=== PATIENT | male | born 1955 | race Caucasian/White ===

== ENCOUNTER 2018-06-25 19:07 | Emergency (ER) | payer MEDICAID ==
[~2018-06-25] VITALS: Ht 180.3 cm; Wt 96.8 kg
[2018-06-25 19:15] VITALS: BP 121/58; TEMP 98.3
[2018-06-25 20:13] VITALS: PULSE 99
== END 2018-06-25 20:15 | disposition home or self-care (01) ==
LOC: COL.ER 19:07
DX: G89.29 Other chronic pain (principal); M54.2 Cervicalgia
CPT/HCPCS: J1885; J2360; J3010

== ENCOUNTER 2018-08-15 22:11 | Emergency (ER) | payer MEDICAID ==
[~2018-08-15] VITALS: Ht 182.9 cm; Wt 92.7 kg
[2018-08-15 22:17] VITALS: TEMP 97.8
[2018-08-15 22:41] LABS: COLLECTION METHOD CLEAN CATCH
[2018-08-15 22:44] LABS: BASO # 0.1 (0.0-0.2); BASO % 0.6 % (0.0-2.0); EOS # 0.2 (0.0-0.7); EOS % 1.4 % (0-4.0); GRAN # 7.4 (1.4-6.5); GRAN % 58.8 % (42.2-75.2); HEMATOCRIT 42.8 % (42.0-52.0); HEMOGLOBIN 14.8 g/dl (13.5-18.0); LYMPH # 3.9 (1.2-3.4); LYMPH % 30.9 % (20.0-51.0); MEAN CELL VOLUME 91 fl (80.0-100.0); MEAN CORPUSCULAR HEMOGLOBIN 31 pg (27.0-31.0); MEAN CORPUSCULAR HGB CONC 35 g/dl (33.0-37.0); PLATELET COUNT 280 K/mm3 (130-400); RED BLOOD COUNT 4.73 M/mm3 (4.20-5.60); REDCELL DISTRIBUTION WIDTH-CV 12.8 % (11.5-14.5)
[2018-08-15 22:48] LABS: PH 6 (5-8); SQUAMOUS EPITHELIAL None Seen /hpf; URINE APPEARANCE Clear; URINE BACTERIA None Seen /hpf; URINE BILIRUBIN Negative (NEGATIVE); URINE BLOOD Negative (NEGATIVE); URINE COLOR Straw; URINE GLUCOSE 1+ (NEGATIVE); URINE KETONE Negative (NEGATIVE); URINE LEUKOCYTE ESTERASE Negative (NEGATIVE); URINE NITRATE Negative (NEGATIVE); URINE PROTEIN(semi-quant) Negative (NEGATIVE); URINE RBC None Seen /hpf; URINE UROBILINOGEN Negative (NEGATIVE)
[2018-08-15] MEDS ORDERED: CARDIZEM120 MG PO (22:54)
[2018-08-15 22:56] LABS: ALANINE AMINOTRANSFERASE 25 U/L (21-72); ALBUMIN 3.9 gm/dL (3.5-5.0); ALKALINE PHOSPHATASE 88 U/L (50-136); ANION GAP 9 mmol/L (7-16); AST,SGOT 18 U/L (15-37); BILIRUBIN,TOTAL 0.4 mg/dL (0.0-1.0); BLOOD UREA NITROGEN 18 mg/dL (9-20); CALCIUM 9.3 mg/dL (8.4-10.2); CARBON DIOXIDE 26 mmol/L (22-30); CHLORIDE 99 mmol/L (98-107); CREATININE, serum 1.06 mg/dL (0.66-1.25); GLUCOSE 128 mg/dL (74-106); POTASSIUM 3.7 mmol/L (3.4-5.0); SODIUM 134 mmol/L (137-145); TOTAL PROTEIN 6.8 gm/dL (6.4-8.2)
[2018-08-15] MEDS ORDERED: NOVOLOG 100U100 U/M1 SQ (22:56)
[2018-08-15] MEDS ORDERED: HUMIRA40 MG/0.8 SQ (22:56)
[2018-08-15] MEDS ORDERED: OZEMPIC0.25 MG/0. SQ (22:57)
[2018-08-15] MEDS ORDERED: LANTUS SOLOS100 U/ML SQ (22:57)
[2018-08-15] MEDS ORDERED: REPATHA PU420 MG/3.5 SQ (22:58)
[2018-08-15] MEDS ORDERED: PRIL40 PO (22:58)
[2018-08-15 23:01] LABS: C-REACTIVE PROTEIN < 0.5 mg/dL (0.0-0.9)
[2018-08-15 23:09] LABS: TROPONIN-I < 0.012 ng/mL (0.000-0.035)
[2018-08-15] MEDS ORDERED: LEVAQUIN 5500 MG/TA1 PO (23:27)
[2018-08-15 23:54] VITALS: BP 125/84; PULSE 84
== END 2018-08-15 23:55 | disposition home or self-care (01) ==
LOC: COL.ER 22:11
PROVIDERS: Emergency Medicine
DX: G89.29 Other chronic pain (principal); M54.2 Cervicalgia; F17.210 Nicotine dependence, cigarettes, uncomplicated; E11.9 Type 2 diabetes mellitus without complications; K21.9 Gastro-esophageal reflux disease without esophagitis; I10 Essential (primary) hypertension; Z79.4 Long term (current) use of insulin
CPT/HCPCS: J3010; J7030

== ENCOUNTER 2018-09-30 20:03 | Emergency (ER) | payer MEDICAID ==
[~2018-09-30] VITALS: Ht 182.9 cm; Wt 93.2 kg
[~2018-09-30 20:03] MED LIST: CARDIZEM120 MG PO; HUMIRA40 MG/0.8 SQ; LANTUS SOLOS100 U/ML SQ; LEVAQUIN 5500 MG/TA1 PO; NOVOLOG 100U100 U/M1 SQ; OZEMPIC0.25 MG/0. SQ; PRIL40 PO; REPATHA PU420 MG/3.5 SQ
[2018-09-30 20:13] VITALS: BP 138/76; TEMP 98.9
[2018-09-30 22:07] VITALS: PULSE 97
== END 2018-09-30 23:54 | disposition home or self-care (01) ==
LOC: COL.ER 20:03
DX: G89.29 Other chronic pain (principal); M54.2 Cervicalgia; M25.559 Pain in unspecified hip; J44.9 Chronic obstructive pulmonary disease, unspecified; I10 Essential (primary) hypertension; E11.9 Type 2 diabetes mellitus without complications; Z79.4 Long term (current) use of insulin; Z87.891 Personal history of nicotine dependence
CPT/HCPCS: J1885; J3010

== ENCOUNTER → 2018-10-03 | Outpatient (CLI) | payer MEDICAID | LOC: MHCPAIN 14:53 | DX: G89.29 Other chronic pain (principal); M54.12 Radiculopathy, cervical region; M47.812 Spondylosis without myelopathy or radiculopathy, cervical region | CPT/HCPCS: G0463 ==

== ENCOUNTER 2018-10-16 12:54 | Outpatient (RCR) | payer MEDICAID | END 2018-12-06 10:21 | disposition home or self-care (01) | LOC: WSPT 12:54 | DX: J45.909 Unspecified asthma, uncomplicated (principal); M47.812 Spondylosis without myelopathy or radiculopathy, cervical region ==

== ENCOUNTER → 2018-10-23 | Outpatient (CLI) | payer MEDICAID | LOC: MHCPAIN 10:33 | DX: M54.12 Radiculopathy, cervical region (principal); M47.812 Spondylosis without myelopathy or radiculopathy, cervical region; M50.90 Cervical disc disorder, unspecified, unspecified cervical region | CPT/HCPCS: J1100; Q9967 ==

== ENCOUNTER 2018-12-02 21:17 | Emergency (ER) | payer MEDICAID ==
[~2018-12-02] VITALS: Ht 182.9 cm; Wt 93.2 kg
[2018-12-02 21:30] VITALS: TEMP 97.2
[2018-12-02 22:50] VITALS: BP 135/88; PULSE 82
== END 2018-12-02 22:50 | disposition home or self-care (01) ==
LOC: COL.ER 21:17
DX: S93.401A Sprain of unspecified ligament of right ankle, initial encounter (principal); Z79.4 Long term (current) use of insulin; W18.42XA Slipping, tripping and stumbling without falling due to stepping into hole or opening, initial encounter

== ENCOUNTER 2019-01-10 17:27 | Emergency (ER) | payer MEDICAID ==
[~2019-01-10] VITALS: Ht 182.9 cm; Wt 93.2 kg
[2019-01-10 17:29] VITALS: BP 132/69; TEMP 98.6
[2019-01-10] MEDS ORDERED: NEXIUM 40MG40 MG PO (17:50)
[2019-01-10 18:06] LABS: BASO # 0.1 (0.0-0.2); BASO % 0.6 % (0.0-2.0); EOS # 0.1 (0.0-0.7); EOS % 0.7 % (0-4.0); GRAN # 7.2 (1.4-6.5); GRAN % 60.1 % (42.2-75.2); HEMATOCRIT 42.9 % (42.0-52.0); HEMOGLOBIN 14.7 g/dl (13.5-18.0); LYMPH # 3.8 (1.2-3.4); LYMPH % 31.6 % (20.0-51.0); MEAN CELL VOLUME 92 fl (80.0-100.0); MEAN CORPUSCULAR HEMOGLOBIN 31 pg (27.0-31.0); MEAN CORPUSCULAR HGB CONC 34 g/dl (33.0-37.0); MONO # 0.8 (0.1-0.6); MONO % 6.7 % (1.7-9.3); PLATELET COUNT 282 K/mm3 (130-400); RED BLOOD COUNT 4.68 M/mm3 (4.20-5.60); REDCELL DISTRIBUTION WIDTH-CV 12.7 % (11.5-14.5)
[2019-01-10 18:17] LABS: ALBUMIN 4.3 gm/dL (3.5-5.0); BILIRUBIN,TOTAL 0.7 mg/dL (0.0-1.0); CREATININE, serum 0.96 (0.66-1.25); POTASSIUM 3.4 mmol/L (3.4-5.0); TOTAL PROTEIN 7.7 gm/dL (6.4-8.2)
[2019-01-10 20:30] VITALS: PULSE 77
== END 2019-01-10 20:30 | disposition home or self-care (01) ==
LOC: COL.ER 17:27
PROVIDERS: Nurse Practitioner
DX: T63.441A Toxic effect of venom of bees, accidental (unintentional), initial encounter (principal); M54.2 Cervicalgia; G89.29 Other chronic pain; I10 Essential (primary) hypertension; E11.9 Type 2 diabetes mellitus without complications; Z79.4 Long term (current) use of insulin; J44.9 Chronic obstructive pulmonary disease, unspecified; F17.290 Nicotine dependence, other tobacco product, uncomplicated
CPT/HCPCS: J1200; J1885; J2920

== ENCOUNTER 2019-03-09 10:40 | Day surgery (SDC) | payer MEDICAID ==
[~2019-03-09] VITALS: Ht 182.9 cm; Wt 89.0 kg
[~2019-03-09 10:40] MED LIST changes: +CARDIZEM CD 12120 MG PO; -CARDIZEM120 MG PO; +HUMIRA40 MG/0.4 SQ; -HUMIRA40 MG/0.8 SQ; +NEXIUM 40MG40 MG PO; -REPATHA PU420 MG/3.5 SQ; +REPATHA SU140 MG/1 M SQ
[2019-03-09] MEDS ORDERED: LIDOCAINE HC20 MG/M2 PO (11:41)
[2019-03-09] MEDS ORDERED: ZOFRAN ODT4 MG PO (11:42)
[2019-03-09] MEDS ORDERED: LAMISIL250 M1 PO (11:42)
[2019-03-09] MEDS ORDERED: FOLIC ACID 11 MG/TA1 PO (11:43)
[2019-03-09] MEDS ORDERED: LYRICA 150MG C150 MG PO (11:43)
[2019-03-09] MEDS ORDERED: RELAFEN750 MG PO (11:44)
[2019-03-09] MEDS ORDERED: TRENTAL 400MG400 MG PO (11:44)
[2019-03-09] MEDS ORDERED: DULCOLAX STOOL100 MG PO (11:44)
[2019-03-09] MEDS ORDERED: PREDNISONE 5MG5 MG PO (11:44)
[2019-03-09] MEDS ORDERED: FLOMAX 0.40.4 MG/CAP PO (11:45)
[2019-03-09] MEDS ORDERED: VALTREX1 GM PO (11:45)
[2019-03-09] MEDS ORDERED: ASPIRIN E.C. 8181 MG PO (11:45)
[2019-03-09] MEDS ORDERED: ZYRTEC 10MG10 MG PO (11:45)
[2019-03-09] MEDS ORDERED: METHOTREXA2.5 MG/TAB PO (11:46)
[2019-03-09] MEDS ORDERED: PROSCAR 5MG5 MG PO (11:46)
[2019-03-09] MEDS ORDERED: REQUIP 0.5MG0.5 MG PO (11:46)
[2019-03-09] MEDS ORDERED: AMBIEN 10MG10 MG PO (11:47)
[2019-03-09] MEDS ORDERED: ZOLOFT 100MG100 MG PO (11:47)
[2019-03-09] MEDS ORDERED: TOVIAZ4 MG PO (11:47)
[2019-03-09] MEDS ORDERED: SYMJEPI0.3 MG/0.3 IJ (11:48)
[2019-03-09] MEDS ORDERED: SSD25 GM TP (11:49)
[2019-03-09] MEDS ORDERED: PRINIVIL10 MG PO (11:50)
[2019-03-09] MEDS ORDERED: TEMOVATE0.05% TP (11:50)
[2019-03-09] MEDS ORDERED: BACTROBAN22 TOP (11:50)
[2019-03-09] MEDS ORDERED: FIORICET 325 MG1 TA1 PO (11:51)
[2019-03-09] MEDS ORDERED: PROCTOCREAM-HC2.5% RC (11:51)
[2019-03-09 12:39] VITALS: BP 114/75; PULSE 78; TEMP 97.3
[2019-03-09 13:00] VITALS: BP 105/76; PULSE 83
--- NOTE | 2019-03-09 13:00 | NUR ---
Pt to [facility] via cart. Pt awake and alert. Denies pain or nausea. Pt makes crude jokes and sexual innuendos at nursing staff and laughs at him self. Pt ambulates to recliner with stand by assistance. Warm blanket provided. Ex- brought to room. Coffee and muffin provided. Call light within reach.
[2019-03-09 13:15] VITALS: BP 110/89; PULSE 78
--- NOTE | 2019-03-09 13:15 | NUR ---
Pt tolerating food and fluids without difficulties. Call light within reach.
[2019-03-09 13:30] VITALS: BP 103/78; PULSE 82
--- NOTE | 2019-03-09 13:30 | NUR ---
Second muffin and coffee given per request. Call light within reach.
--- NOTE | 2019-03-09 13:45 | NUR ---
IV site discontinued with all parts intact by Dinh GALLOWAY. Pt up to restroom with assistance from .
--- NOTE | 2019-03-09 14:00 | NUR ---
Discharge instructions reviewed. Pt voices understanding. Pt escorted to private car by Dinh GALLOWAY.
== END 2019-03-09 14:00 | disposition home or self-care (01) ==
LOC: SDCO 10:40
DX: R19.7 Diarrhea, unspecified (principal); K57.30 Diverticulosis of large intestine without perforation or abscess without bleeding; K22.70 Barrett's esophagus without dysplasia; Z79.899 Other long term (current) drug therapy; I10 Essential (primary) hypertension; G47.33 Obstructive sleep apnea (adult) (pediatric); G89.29 Other chronic pain; M54.2 Cervicalgia; M87.88 Other osteonecrosis, other site; E11.9 Type 2 diabetes mellitus without complications; Z79.4 Long term (current) use of insulin
CPT/HCPCS: J2704

== ENCOUNTER 2019-03-24 22:01 | Emergency (ER) | payer MEDICAID ==
[~2019-03-24] VITALS: Ht 180.3 cm; Wt 89.5 kg
[~2019-03-24 22:01] MED LIST changes: +AMBIEN 10MG10 MG PO; +ASPIRIN E.C. 8181 MG PO; +BACTROBAN22 TOP; +DULCOLAX STOOL100 MG PO; +FIORICET 325 MG1 TA1 PO; +FLOMAX 0.40.4 MG/CAP PO; +FOLIC ACID 11 MG/TA1 PO; +LAMISIL250 M1 PO; +LIDOCAINE HC20 MG/M2 PO; +LYRICA 150MG C150 MG PO; +METHOTREXA2.5 MG/TAB PO; +PREDNISONE 5MG5 MG PO; +PRINIVIL10 MG PO; +PROCTOCREAM-HC2.5% RC; +PROSCAR 5MG5 MG PO; +RELAFEN750 MG PO; +REQUIP 0.5MG0.5 MG PO; +SSD25 GM TP; +SYMJEPI0.3 MG/0.3 IJ; +TEMOVATE0.05% TP; +TOVIAZ4 MG PO; +TRENTAL 400MG400 MG PO; +VALTREX1 GM PO; +ZOFRAN ODT4 MG PO; +ZOLOFT 100MG100 MG PO; +ZYRTEC 10MG10 MG PO
[2019-03-24 22:35] VITALS: TEMP 98.7
[2019-03-25] MEDS ORDERED: NORCO 325 MG-51 TAB PO (01:49)
[2019-03-25 02:29] VITALS: BP 119/77; PULSE 84
== END 2019-03-25 02:29 | disposition home or self-care (01) ==
LOC: COL.ER 22:01
DX: S40.011A Contusion of right shoulder, initial encounter (principal); M79.7 Fibromyalgia; F17.210 Nicotine dependence, cigarettes, uncomplicated; Z79.4 Long term (current) use of insulin; S50.01XA Contusion of right elbow, initial encounter; S60.211A Contusion of right wrist, initial encounter; W18.39XA Other fall on same level, initial encounter; Y92.009 Unspecified place in unspecified non-institutional (private) residence as the place of occurrence of the external cause
CPT/HCPCS: J3010

== ENCOUNTER 2019-05-01 15:27 | Emergency (ER) | payer MEDICAID ==
[~2019-05-01] VITALS: Ht 182.9 cm; Wt 92.3 kg
[~2019-05-01 15:27] MED LIST changes: +NORCO 325 MG-51 TAB PO
[2019-05-01 15:32] VITALS: TEMP 97.7
[2019-05-01 16:07] LABS: BASO # 0.1 (0.0-0.2); BASO % 0.9 % (0.0-2.0); EOS # 0.2 (0.0-0.7); EOS % 1.9 % (0-4.0); GRAN # 6.4 (1.4-6.5); GRAN % 61.6 % (42.2-75.2); HEMATOCRIT 49.9 % (42.0-52.0); HEMOGLOBIN 16.4 g/dl (13.5-18.0); LYMPH % 29.2 % (20.0-51.0); MEAN CELL VOLUME 96 fl (80.0-100.0); MEAN CORPUSCULAR HEMOGLOBIN 32 pg (27.0-31.0); MEAN CORPUSCULAR HGB CONC 33 g/dl (33.0-37.0); MEAN PLATELET VOLUME 8.9 fl (7.4-10.4); MONO # 0.6 (0.1-0.6); MONO % 6.1 % (1.7-9.3); PLATELET COUNT 291 K/mm3 (130-400); RED BLOOD COUNT 5.18 M/mm3 (4.20-5.60); REDCELL DISTRIBUTION WIDTH-CV 13.2 % (11.5-14.5)
[2019-05-01 16:11] LABS: ALANINE AMINOTRANSFERASE 22 U/L (21-72); ALBUMIN 4.3 gm/dL (3.5-5.0); ALKALINE PHOSPHATASE 98 U/L (50-136); ANION GAP 8 mmol/L (7-16); AST,SGOT 27 U/L (15-37); BILIRUBIN,TOTAL 0.4 mg/dL (0.0-1.0); BLOOD UREA NITROGEN 11 mg/dL (9-20); CALCIUM 9.8 mg/dL (8.4-10.2); CARBON DIOXIDE 31 mmol/L (22-30); CHLORIDE 100 mmol/L (98-107); CREATININE, serum 0.83 (0.66-1.25); GLUCOSE 118 mg/dL (74-106); POTASSIUM 4.2 mmol/L (3.4-5.0); PROTHROMBIN TIME 11.2 SECONDS (9.7-12.8); SODIUM 138 mmol/L (137-145); TOTAL PROTEIN 7.5 gm/dL (6.4-8.2)
[2019-05-01 16:25] LABS: C-REACTIVE PROTEIN < 0.5 mg/dL (0.0-0.9); TROPONIN-I < 0.012 ng/mL (0.000-0.035)
[2019-05-01 17:34] VITALS: BP 123/83; PULSE 80
== END 2019-05-01 17:34 | disposition home or self-care (01) ==
LOC: COL.ER 15:27
PROVIDERS: Emergency Medicine
DX: R20.0 Anesthesia of skin (principal); R53.1 Weakness; E11.9 Type 2 diabetes mellitus without complications; I10 Essential (primary) hypertension; E78.5 Hyperlipidemia, unspecified; J44.9 Chronic obstructive pulmonary disease, unspecified; F17.210 Nicotine dependence, cigarettes, uncomplicated; Z90.89 Acquired absence of other organs; Z79.4 Long term (current) use of insulin; Z98.890 Other specified postprocedural states
CPT/HCPCS: J7030

== ENCOUNTER → 2019-05-04 | Outpatient (CLI) | payer MEDICAID | LOC: ZCOL.LAB 16:56 | DX: Z77.010 Contact with and (suspected) exposure to arsenic (principal) ==

== ENCOUNTER 2019-05-09 18:34 | Emergency (ER) | payer MEDICAID ==
[~2019-05-09] VITALS: Ht 182.9 cm; Wt 92.3 kg
[2019-05-09 18:43] VITALS: BP 134/82
[2019-05-09 19:35] VITALS: PULSE 92; TEMP 98.2
== END 2019-05-09 19:35 | disposition home or self-care (01) ==
LOC: COL.ER 18:34
DX: M54.5 Low back pain (principal); M54.2 Cervicalgia; G89.29 Other chronic pain; F17.210 Nicotine dependence, cigarettes, uncomplicated; J44.9 Chronic obstructive pulmonary disease, unspecified; E78.5 Hyperlipidemia, unspecified; I10 Essential (primary) hypertension; E11.9 Type 2 diabetes mellitus without complications; Z79.4 Long term (current) use of insulin; Z79.82 Long term (current) use of aspirin
CPT/HCPCS: J1885; J2360

== ENCOUNTER → 2019-05-10 | Outpatient (CLI) | payer MEDICAID | LOC: COL.RAD 13:38 | DX: Z01.812 Encounter for preprocedural laboratory examination (principal); R20.0 Anesthesia of skin; R29.810 Facial weakness; R42 Dizziness and giddiness; R51 Headache | CPT/HCPCS: A9585 ==

== ENCOUNTER → 2019-05-16 | Outpatient (CLI) | payer MEDICAID | LOC: COL.RAD 08:55 | DX: J98.4 Other disorders of lung (principal); R06.00 Dyspnea, unspecified; F17.200 Nicotine dependence, unspecified, uncomplicated ==

== ENCOUNTER → 2019-05-29 | Outpatient (CLI) | payer MEDICAID ==
[~2019-05-29] MED LIST changes: +LEVAQUIN 750MG750 M1 PO; +OXYCODONE H5 MG/5 ML PO; +PHENERGAN 25 TA25 MG PO
== END ==
LOC: MHCPAIN
DX: G89.29 Other chronic pain (principal); M54.12 Radiculopathy, cervical region; M54.81 Occipital neuralgia; R51 Headache; M47.812 Spondylosis without myelopathy or radiculopathy, cervical region
CPT/HCPCS: G0463

== ENCOUNTER 2019-06-01 14:16 | Emergency (ER) | payer MEDICAID ==
[~2019-06-01] VITALS: Ht 182.9 cm; Wt 93.2 kg
[~2019-06-01 14:16] MED LIST changes: -LEVAQUIN 750MG750 M1 PO; -OXYCODONE H5 MG/5 ML PO; -PHENERGAN 25 TA25 MG PO
[2019-06-01 14:34] VITALS: TEMP 97.8
[2019-06-01 15:24] LABS: BASO # 0.1 (0.0-0.2); BASO % 0.7 % (0.0-2.0); EOS # 0.2 (0.0-0.7); EOS % 1.3 % (0-4.0); GRAN % 66.5 % (42.2-75.2); HEMATOCRIT 47.8 % (42.0-52.0); HEMOGLOBIN 16.5 g/dl (13.5-18.0); LYMPH # 2.8 (1.2-3.4); LYMPH % 23.4 % (20.0-51.0); MEAN CELL VOLUME 90 fl (80.0-100.0); MEAN CORPUSCULAR HEMOGLOBIN 31 pg (27.0-31.0); MEAN CORPUSCULAR HGB CONC 35 g/dl (33.0-37.0); MEAN PLATELET VOLUME 8.9 fl (7.4-10.4); MONO # 0.9 (0.1-0.6); MONO % 7.8 % (1.7-9.3); PLATELET COUNT 274 K/mm3 (130-400); RED BLOOD COUNT 5.29 M/mm3 (4.20-5.60); REDCELL DISTRIBUTION WIDTH-CV 12.8 % (11.5-14.5)
[2019-06-01 15:38] LABS: ALBUMIN 4.3 gm/dL (3.5-5.0); BILIRUBIN,TOTAL 0.7 mg/dL (0.0-1.0); CALCIUM 9.9 mg/dL (8.4-10.2); CREATININE, serum 0.93 (0.66-1.25); POTASSIUM 4.6 mmol/L (3.4-5.0); TOTAL PROTEIN 7.8 gm/dL (6.4-8.2)
[2019-06-01] MEDS ORDERED: PHENERGAN 25 TA25 MG PO (16:10)
[2019-06-01] MEDS ORDERED: NORCO 325 MG-51 TAB PO (16:10)
[2019-06-01] MEDS ORDERED: LEVAQUIN 750MG750 M1 PO (16:10)
[2019-06-01 17:11] VITALS: BP 118/79; PULSE 85
[2019-06-02] MEDS ORDERED: OXYCODONE H5 MG/5 ML PO (17:54)
== END 2019-06-01 17:10 | disposition home or self-care (01) ==
LOC: COL.ER 14:16
PROVIDERS: Emergency Medicine
DX: G89.18 Other acute postprocedural pain (principal); E86.0 Dehydration; Z79.82 Long term (current) use of aspirin; Z79.4 Long term (current) use of insulin
CPT/HCPCS: J1885; J2550; J3010; J7030

== ENCOUNTER 2019-06-02 15:52 | Emergency (ER) | payer MEDICAID ==
[~2019-06-02] VITALS: Ht 182.9 cm; Wt 93.2 kg
[~2019-06-02 15:52] MED LIST changes: +LEVAQUIN 750MG750 M1 PO; +PHENERGAN 25 TA25 MG PO
[2019-06-02 15:55] VITALS: TEMP 97.2
[2019-06-02 16:47] LABS: BASO # 0.1 (0.0-0.2); BASO % 0.7 % (0.0-2.0); EOS # 0.2 (0.0-0.7); GRAN # 6.2 (1.4-6.5); HEMATOCRIT 47.7 % (42.0-52.0); HEMOGLOBIN 16.4 g/dl (13.5-18.0); LYMPH # 2.5 (1.2-3.4); LYMPH % 25.3 % (20.0-51.0); MEAN CELL VOLUME 91 fl (80.0-100.0); MEAN CORPUSCULAR HEMOGLOBIN 31 pg (27.0-31.0); MEAN CORPUSCULAR HGB CONC 34 g/dl (33.0-37.0); MEAN PLATELET VOLUME 8.9 fl (7.4-10.4); MONO # 0.7 (0.1-0.6); MONO % 7.5 % (1.7-9.3); PLATELET COUNT 297 K/mm3 (130-400); RED BLOOD COUNT 5.27 M/mm3 (4.20-5.60); REDCELL DISTRIBUTION WIDTH-CV 12.8 % (11.5-14.5)
[2019-06-02 17:02] LABS: ALBUMIN 4.2 gm/dL (3.5-5.0); BILIRUBIN,TOTAL 0.4 mg/dL (0.0-1.0); CALCIUM 9.7 mg/dL (8.4-10.2); CREATININE, serum 0.88 (0.66-1.25); POTASSIUM 4.4 mmol/L (3.4-5.0); TOTAL PROTEIN 7.6 gm/dL (6.4-8.2)
[2019-06-02 17:33] LABS: COLLECTION METHOD CLEAN CATCH
[2019-06-02 17:40] LABS: PH 5 (5-8); SQUAMOUS EPITHELIAL None Seen /hpf; URINE APPEARANCE Clear; URINE BACTERIA None Seen /hpf; URINE BILIRUBIN Negative (NEGATIVE); URINE BLOOD 2+ (NEGATIVE); URINE COLOR Yellow; URINE GLUCOSE Negative (NEGATIVE); URINE KETONE Negative (NEGATIVE); URINE LEUKOCYTE ESTERASE Negative (NEGATIVE); URINE NITRATE Negative (NEGATIVE); URINE PROTEIN(semi-quant) Negative (NEGATIVE); URINE UROBILINOGEN Negative (NEGATIVE)
[2019-06-02] MEDS ORDERED: OXYCODONE H5 MG/5 ML PO (17:54)
[2019-06-02 18:04] VITALS: BP 129/78; PULSE 83
== END 2019-06-02 18:05 | disposition home or self-care (01) ==
LOC: COL.ER 15:52
PROVIDERS: Family Medicine
DX: K13.79 Other lesions of oral mucosa (principal); G89.18 Other acute postprocedural pain; Z79.82 Long term (current) use of aspirin
CPT/HCPCS: J1170; J7030

== ENCOUNTER 2019-06-20 21:28 | Emergency (ER) | payer MEDICAID ==
[~2019-06-20] VITALS: Ht 182.9 cm; Wt 87.7 kg
[~2019-06-20 21:28] MED LIST changes: +OXYCODONE H5 MG/5 ML PO
[2019-06-20 21:35] VITALS: BP 134/96; TEMP 97.7
[2019-06-20 22:49] LABS: BASO # 0.1 (0.0-0.2); BASO % 0.6 % (0.0-2.0); EOS # 0.2 (0.0-0.7); EOS % 1.9 % (0-4.0); GRAN # 5.4 (1.4-6.5); GRAN % 58.1 % (42.2-75.2); HEMATOCRIT 42.8 % (42.0-52.0); HEMOGLOBIN 14.8 g/dl (13.5-18.0); LYMPH # 2.7 (1.2-3.4); LYMPH % 28.9 % (20.0-51.0); MEAN CELL VOLUME 91 fl (80.0-100.0); MEAN CORPUSCULAR HEMOGLOBIN 31 pg (27.0-31.0); MEAN CORPUSCULAR HGB CONC 35 g/dl (33.0-37.0); MEAN PLATELET VOLUME 8.8 fl (7.4-10.4); MONO # 0.9 (0.1-0.6); MONO % 10.1 % (1.7-9.3); PLATELET COUNT 270 K/mm3 (130-400); RED BLOOD COUNT 4.73 M/mm3 (4.20-5.60); REDCELL DISTRIBUTION WIDTH-CV 12.9 % (11.5-14.5)
[2019-06-20 23:07] LABS: BILIRUBIN,TOTAL 0.3 mg/dL (0.0-1.0); C-REACTIVE PROTEIN 6.4 mg/dL (0.0-0.9); CALCIUM 9.3 mg/dL (8.4-10.2); CREATININE, serum 0.73 (0.66-1.25); POTASSIUM 4.1 mmol/L (3.4-5.0); TOTAL PROTEIN 7.2 gm/dL (6.4-8.2)
[2019-06-20 23:14] LABS: ERYTHROCYTE SEDIMENTATION RATE 27 mm/hr (0-30)
[2019-06-21 01:50] VITALS: PULSE 82
[2019-06-21] MEDS ORDERED: FLAGYL 500500 MG/100 IV (10:36)
[2019-06-21] MEDS ORDERED: VIBRAMYCININJ IV (10:36)
[2019-06-21] MEDS ORDERED: PROAIR HFA0.09 MG/AC IH (10:37)
[2019-06-21] MEDS ORDERED: TRELEGY ELLIPT1 EACH IH (10:37)
== END 2019-06-21 01:50 | disposition home or self-care (01) ==
LOC: COL.ER 21:28
PROVIDERS: Emergency Medicine
DX: S61.452A Open bite of left hand, initial encounter (principal); S61.451A Open bite of right hand, initial encounter; I10 Essential (primary) hypertension; E11.40 Type 2 diabetes mellitus with diabetic neuropathy, unspecified; J44.9 Chronic obstructive pulmonary disease, unspecified; E78.5 Hyperlipidemia, unspecified; F17.210 Nicotine dependence, cigarettes, uncomplicated; Z79.84 Long term (current) use of oral hypoglycemic drugs; Z79.52 Long term (current) use of systemic steroids; W54.0XXA Bitten by dog, initial encounter

== ENCOUNTER 2019-06-30 19:36 | Outpatient (RCR) | payer MEDICAID ==
[2019-06-21 10:10] VITALS: BP 127/80; PULSE 86; TEMP 98.6
[2019-06-21 18:02] VITALS: BP 121/92; PULSE 89; TEMP 98.1
[2019-06-21 20:00] VITALS: BP 114/77; PULSE 81
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
--- NOTE | 2019-06-22 12:44 | NUR ---
Message left for pt and pt .pt did not show for am appt.
[2019-06-22 15:34] VITALS: BP 111/82; PULSE 92; TEMP 97.7
[2019-06-23 07:30] VITALS: BP 120/82; PULSE 81; TEMP 97.9
--- NOTE | 2019-06-23 08:00 | NUR ---
Pt stated he was experiencing pain in Left Hand IV site. No infiltration or leaking. Applied warm moist compress. Pt expressed relief for 15 minutes. This RN and pt decided to try a new site. Pt agreed.
[2019-06-24 08:00] VITALS: BP 118/78; PULSE 82; TEMP 97.8
--- NOTE | 2019-06-24 10:04 | NUR ---
Pt/SO made aware this morning to arrive at 0700 tomorrow morning. Pt/SO aware.
[2019-06-25 07:28] VITALS: BP 133/71; PULSE 85; TEMP 98
--- NOTE | 2019-06-25 10:10 | NUR ---
Pt amb to exit at this time. PICC line was inserted by Meghna GALLOWAY, pt received verbal and written instructions regarding PICC care. labs were drawn prior to his departure per orders. Pt will be back this pm for IV abx.
[2019-06-25 10:17] LABS: BASO # 0.1 (0.0-0.2); BASO % 1.1 % (0.0-2.0); EOS # 0.3 (0.0-0.7); EOS % 2.9 % (0-4.0); GRAN # 4.5 (1.4-6.5); GRAN % 46.6 % (42.2-75.2); HEMATOCRIT 41.9 % (42.0-52.0); HEMOGLOBIN 14.4 g/dl (13.5-18.0); LYMPH % 40.7 % (20.0-51.0); MEAN CELL VOLUME 90 fl (80.0-100.0); MEAN CORPUSCULAR HEMOGLOBIN 31 pg (27.0-31.0); MEAN CORPUSCULAR HGB CONC 34 g/dl (33.0-37.0); MEAN PLATELET VOLUME 8.8 fl (7.4-10.4); MONO # 0.8 (0.1-0.6); MONO % 8.3 % (1.7-9.3); PLATELET COUNT 295 K/mm3 (130-400); RED BLOOD COUNT 4.64 M/mm3 (4.20-5.60); REDCELL DISTRIBUTION WIDTH-CV 12.6 % (11.5-14.5)
[2019-06-25 10:36] LABS: ALBUMIN 3.9 gm/dL (3.5-5.0); BILIRUBIN,TOTAL 0.2 mg/dL (0.0-1.0); CALCIUM 9.1 mg/dL (8.4-10.2); CREATININE, serum 0.65 (0.66-1.25); POTASSIUM 3.8 mmol/L (3.4-5.0); TOTAL PROTEIN 6.9 gm/dL (6.4-8.2)
[2019-06-25 18:14] VITALS: BP 112/76; PULSE 92; TEMP 97.6
[2019-06-26 07:16] VITALS: BP 115/77; PULSE 94; TEMP 98.1
[2019-06-26 18:46] VITALS: BP 102/82; PULSE 90; TEMP 97.9
[2019-06-27 08:00] VITALS: BP 114/84; PULSE 93; TEMP 98.3
[2019-06-27 18:32] VITALS: BP 120/84; PULSE 87; TEMP 97.8
[2019-06-28 08:00] VITALS: BP 135/85; TEMP 98.2
[2019-06-28 18:17] VITALS: BP 114/79; PULSE 100; TEMP 98
[2019-06-29 07:48] VITALS: BP 133/79; PULSE 94; TEMP 98.2
[2019-06-29 17:53] VITALS: BP 145/69; PULSE 97; TEMP 97.9
[~2019-06-30] VITALS: Ht 182.9 cm; Wt 93.0 kg
[2019-06-30 07:57] VITALS: BP 141/86; PULSE 94; TEMP 97.8
[~2019-06-30 19:36] MED LIST changes: +FLAGYL 500500 MG/100 IV; +PROAIR HFA0.09 MG/AC IH; +TRELEGY ELLIPT1 EACH IH; +VIBRAMYCININJ IV
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
[2019-07-02 16:12] VITALS: BP 123/74; TEMP 98.3
[2019-07-03 07:53] VITALS: BP 133/83; PULSE 95; TEMP 97.9
[2019-07-03 18:13] VITALS: BP 128/79; PULSE 95; TEMP 98
[2019-07-04 07:42] VITALS: BP 140/78; PULSE 105; TEMP 97.1
[2019-07-05 07:59] VITALS: BP 115/80; PULSE 82; TEMP 97.5
--- NOTE | 2019-07-05 08:00 | NUR ---
PICC intact left upper arm with sterile dressing change done with insertion site cleansed with chloraprep x 1, chlorhexidine impregnated disk applied, skin prep, stat lock, and tegaderm applied. no signs or symptoms of IV complications noted. no concerns voiced. to continue with cares in [place]. voiced understanding of instructions. arm wapped with eneida to protect catheter.
[2019-07-05 17:47] VITALS: BP 131/75; PULSE 97; TEMP 98.2
[2019-07-06 08:18] VITALS: BP 120/86; PULSE 92; TEMP 97.9
[2019-07-10 08:25] VITALS: BP 131/87; PULSE 85; TEMP 98.2
== END 2019-07-10 10:00 | disposition home or self-care (01) ==
LOC: EUO 07-01 07:30
PROVIDERS: Family Medicine
DX: Z45.2 Encounter for adjustment and management of vascular access device (principal); Z79.899 Other long term (current) drug therapy
CPT/HCPCS: C1751

== ENCOUNTER 2019-08-29 13:12 | Emergency (ER) | payer MEDICAID ==
[~2019-08-29] VITALS: Ht 182.9 cm; Wt 90.9 kg
[2019-08-29 13:13] VITALS: TEMP 97.7
[2019-08-29 13:33] LABS: BASO # 0.1 (0.0-0.2); BASO % 0.7 % (0.0-2.0); EOS # 0.2 (0.0-0.7); GRAN # 5.4 (1.4-6.5); GRAN % 56.6 % (42.2-75.2); HEMOGLOBIN 15.5 g/dl (13.5-18.0); LYMPH # 3.2 (1.2-3.4); LYMPH % 33.5 % (20.0-51.0); MEAN CELL VOLUME 89 fl (80.0-100.0); MEAN CORPUSCULAR HEMOGLOBIN 31 pg (27.0-31.0); MEAN CORPUSCULAR HGB CONC 34 g/dl (33.0-37.0); MEAN PLATELET VOLUME 9.1 fl (7.4-10.4); MONO # 0.7 (0.1-0.6); MONO % 6.9 % (1.7-9.3); PLATELET COUNT 288 K/mm3 (130-400); RED BLOOD COUNT 5.04 M/mm3 (4.20-5.60); REDCELL DISTRIBUTION WIDTH-CV 12.4 % (11.5-14.5)
[2019-08-29 13:43] LABS: ALANINE AMINOTRANSFERASE 9 U/L (21-72); ALBUMIN 3.9 gm/dL (3.5-5.0); ALKALINE PHOSPHATASE 76 U/L (50-136); ANION GAP 9 mmol/L (7-16); AST,SGOT 19 U/L (15-37); BILIRUBIN,TOTAL 0.4 mg/dL (0.0-1.0); BLOOD UREA NITROGEN 10 mg/dL (9-20); CALCIUM 9.2 mg/dL (8.4-10.2); CARBON DIOXIDE 26 mmol/L (22-30); CHLORIDE 105 mmol/L (98-107); CREATININE, serum 0.67 (0.66-1.25); GLUCOSE 155 mg/dL (74-106); LIPASE 190 U/L (23-300); SODIUM 140 mmol/L (137-145); TOTAL PROTEIN 6.9 gm/dL (6.4-8.2)
[2019-08-29 13:45] LABS: PARTIAL THROMBOPLASTIN TIME 28.7 SECONDS (26.0-37.0)
[2019-08-29 13:57] LABS: TROPONIN-I < 0.012 ng/mL (0.000-0.035)
[2019-08-29] MEDS ORDERED: NYSTATIN100000 U/1 TOP (14:17)
[2019-08-29 15:30] VITALS: BP 115/73; PULSE 83
== END 2019-08-29 15:21 | disposition left against medical advice (07) ==
LOC: COL.ER 13:12
PROVIDERS: Emergency Medicine
DX: R07.89 Other chest pain (principal); I10 Essential (primary) hypertension; E11.9 Type 2 diabetes mellitus without complications; E78.5 Hyperlipidemia, unspecified; F17.210 Nicotine dependence, cigarettes, uncomplicated; Z86.73 Personal history of transient ischemic attack (TIA), and cerebral infarction without residual deficits; Z79.4 Long term (current) use of insulin; Z79.82 Long term (current) use of aspirin
CPT/HCPCS: J3010; J7030

== ENCOUNTER 2019-08-31 13:58 | Emergency (ER) | payer MEDICAID ==
[~2019-08-31] VITALS: Ht 182.9 cm; Wt 90.9 kg
[~2019-08-31 13:58] MED LIST changes: +NYSTATIN100000 U/1 TOP
[2019-08-31 14:54] LABS: BASO # 0.1 (0.0-0.2); BASO % 0.8 % (0.0-2.0); EOS # 0.1 (0.0-0.7); GRAN # 5.4 (1.4-6.5); GRAN % 61.1 % (42.2-75.2); HEMATOCRIT 46.4 % (42.0-52.0); HEMOGLOBIN 16.1 g/dl (13.5-18.0); LYMPH # 2.6 (1.2-3.4); LYMPH % 29.6 % (20.0-51.0); MEAN CELL VOLUME 88 fl (80.0-100.0); MEAN CORPUSCULAR HEMOGLOBIN 31 pg (27.0-31.0); MEAN CORPUSCULAR HGB CONC 35 g/dl (33.0-37.0); MONO # 0.6 (0.1-0.6); MONO % 7.2 % (1.7-9.3); PLATELET COUNT 294 K/mm3 (130-400); RED BLOOD COUNT 5.26 M/mm3 (4.20-5.60); REDCELL DISTRIBUTION WIDTH-CV 12.2 % (11.5-14.5)
[2019-08-31] MEDS ORDERED: HUMALOG100 U/ML SQ (15:03)
[2019-08-31 15:07] LABS: ALANINE AMINOTRANSFERASE 14 U/L (21-72); ALBUMIN 4.4 gm/dL (3.5-5.0); ALKALINE PHOSPHATASE 78 U/L (50-136); ANION GAP 9 mmol/L (7-16); AST,SGOT 23 U/L (15-37); BILIRUBIN,TOTAL 0.6 mg/dL (0.0-1.0); BLOOD UREA NITROGEN 9 mg/dL (9-20); CALCIUM 9.6 mg/dL (8.4-10.2); CARBON DIOXIDE 25 mmol/L (22-30); CHLORIDE 105 mmol/L (98-107); CREATININE, serum 0.64 (0.66-1.25); GLUCOSE 146 mg/dL (74-106); LIPASE 150 U/L (23-300); POTASSIUM 3.8 mmol/L (3.4-5.0); SODIUM 139 mmol/L (137-145); TOTAL PROTEIN 7.5 gm/dL (6.4-8.2)
[2019-08-31 15:25] LABS: TROPONIN-I < 0.012 ng/mL (0.000-0.035)
[2019-08-31 16:03] VITALS: BP 121/86; PULSE 80; TEMP 98.6
[2019-09-04] MEDS ORDERED: TAZTIA120 PO (23:22)
[2019-09-04] MEDS ORDERED: GICOCKTAIL PO (23:35)
[2019-09-04] MEDS ORDERED: TOVIAZ4 MG PO (23:42)
[2019-09-04] MEDS ORDERED: OZEMPIC1 MG/0.75 SQ (23:45)
[2019-09-04] MEDS ORDERED: HUMIRA(CF)40 MG/0.4 SQ (23:47)
[2019-09-04] MEDS ORDERED: REPATHA SU140 MG/1 M SQ (23:48)
== END 2019-08-31 16:25 | disposition home or self-care (01) ==
LOC: COL.ER 13:58
PROVIDERS: Physician Assistant
DX: R07.89 Other chest pain (principal); E78.5 Hyperlipidemia, unspecified; I10 Essential (primary) hypertension; F17.210 Nicotine dependence, cigarettes, uncomplicated; Z79.4 Long term (current) use of insulin; Z79.82 Long term (current) use of aspirin; Z79.51 Long term (current) use of inhaled steroids

== ENCOUNTER 2019-09-21 08:49 | Outpatient (CLI) | payer MEDICAID ==
[~2019-09-21] VITALS: Ht 183 cm; Wt 89.9 kg
[~2019-09-21 08:49] MED LIST changes: +GICOCKTAIL PO; +HUMALOG100 U/ML SQ; +HUMIRA(CF)40 MG/0.4 SQ; +OZEMPIC1 MG/0.75 SQ; +RELAFEN 50500 MG/TAB PO; -RELAFEN750 MG PO; +TAZTIA120 PO
[2019-09-21 09:25] LABS: HEMATOCRIT 46.1 % (42.0-52.0); HEMOGLOBIN 15.7 g/dl (13.5-18.0); MEAN CELL VOLUME 88 fl (80.0-100.0); MEAN CORPUSCULAR HEMOGLOBIN 30 pg (27.0-31.0); MEAN CORPUSCULAR HGB CONC 34 g/dl (33.0-37.0); MEAN PLATELET VOLUME 8.8 fl (7.4-10.4); PLATELET COUNT 292 K/mm3 (130-400); RED BLOOD COUNT 5.23 M/mm3 (4.20-5.60); REDCELL DISTRIBUTION WIDTH-CV 12.3 % (11.5-14.5)
[2019-09-21 09:30] LABS: PROTHROMBIN TIME 11.9 SECONDS (9.7-12.8)
[2019-09-21 09:48] LABS: CALCIUM 9.1 mg/dL (8.4-10.2); CREATININE, serum 0.85 (0.66-1.25); POTASSIUM 3.5 mmol/L (3.4-5.0)
[2019-09-21 10:02] VITALS: BP 114/80; PULSE 91; TEMP 97.7
[2019-09-21] MEDS ORDERED: FLOMAX 0.40.4 MG/CAP PO (10:16)
[2019-09-21] MEDS ORDERED: PROSCAR 5MG5 MG PO (10:17)
[2019-09-21] MEDS ORDERED: NEXIUM 40MG40 MG PO (10:18)
[2019-09-21] MEDS ORDERED: IPRATROPIUM BROM3 M1 IH (10:18)
[2019-09-21] MEDS ORDERED: BACTROBAN15 GM TOP (10:19)
[2019-09-21] MEDS ORDERED: PRAVACHOL 40MG40 MG PO (10:19)
[2019-09-21] MEDS ORDERED: MIRALAX PA17 GM/Dose PO (10:20)
[2019-09-21] MEDS ORDERED: ZANAFLEX CAPSULE4 MG PO (10:28)
[2019-09-21] MEDS ORDERED: ZOLOFT 100MG100 MG PO (10:28)
[2019-09-21] MEDS ORDERED: DOXYCYCLINE 10100 MG PO (10:29)
[2019-09-21] MEDS ORDERED: NITROSTAT0.4 MG/TAB SL (10:30)
[2019-09-21 10:50] VITALS: BP 111/76; PULSE 99
[2019-09-21 10:55] VITALS: BP 110/92; PULSE 94
[2019-09-21 11:10] VITALS: BP 123/82; PULSE 84
[2019-09-21 11:25] VITALS: BP 122/81; PULSE 80
[2019-09-21 11:40] VITALS: BP 122/83; PULSE 79
--- NOTE | 2019-09-21 12:11 | NUR ---
Discharge instructions given to pt.pt verbalizes understanding.INT removed,catheter tip intact.Pt escorted out via wheelchair by this nurse.
== END 2019-09-21 12:16 | disposition home or self-care (01) ==
LOC: COL.RAD 08:49
PROVIDERS: Internal Medicine Interventional Cardiology
DX: I63.9 Cerebral infarction, unspecified (principal); I48.91 Unspecified atrial fibrillation; I34.0 Nonrheumatic mitral (valve) insufficiency
CPT/HCPCS: J2704

== ENCOUNTER 2020-01-06 18:44 | Emergency (ER) | payer MEDICAID ==
[~2020-01-06] VITALS: Ht 183 cm; Wt 87.7 kg
[~2020-01-06 18:44] MED LIST changes: +BACTROBAN15 GM TOP; +DOXYCYCLINE 10100 MG PO; +IPRATROPIUM BROM3 M1 IH; +MIRALAX PA17 GM/Dose PO; +NITROSTAT0.4 MG/TAB SL; +PRAVACHOL 40MG40 MG PO; +ZANAFLEX CAPSULE4 MG PO
[2020-01-06 19:55] LABS: ALANINE AMINOTRANSFERASE 17 U/L (4-49); ALBUMIN 4.4 gm/dL (3.5-5.0); ALKALINE PHOSPHATASE 98 U/L (50-136); ANION GAP 7 mmol/L (7-16); AST,SGOT 24 U/L (15-37); BILIRUBIN,TOTAL 0.7 mg/dL (0.0-1.0); BLOOD UREA NITROGEN 9 mg/dL (9-20); CALCIUM 9.8 mg/dL (8.4-10.2); CARBON DIOXIDE 30 mmol/L (22-30); CHLORIDE 100 mmol/L (98-107); CREATININE, serum 0.88 (0.66-1.25); GLUCOSE 123 mg/dL (74-106); POTASSIUM 3.6 mmol/L (3.4-5.0); SODIUM 137 mmol/L (137-145)
[2020-01-06 19:56] LABS: BASO # 0.1 (0.0-0.2); BASO % 0.9 % (0.0-2.0); EOS # 0.2 (0.0-0.7); GRAN # 4.7 (1.4-6.5); GRAN % 50.5 % (42.2-75.2); HEMATOCRIT 48.9 % (42.0-52.0); HEMOGLOBIN 16.8 g/dl (13.5-18.0); LYMPH # 3.5 (1.2-3.4); LYMPH % 37.3 % (20.0-51.0); MEAN CELL VOLUME 88 fl (80.0-100.0); MEAN CORPUSCULAR HEMOGLOBIN 30 pg (27.0-31.0); MEAN CORPUSCULAR HGB CONC 34 g/dl (33.0-37.0); MEAN PLATELET VOLUME 9.1 fl (7.4-10.4); MONO # 0.8 (0.1-0.6); MONO % 8.9 % (1.7-9.3); PLATELET COUNT 308 K/mm3 (130-400); RED BLOOD COUNT 5.53 M/mm3 (4.20-5.60)
[2020-01-06 19:58] LABS: C-REACTIVE PROTEIN < 0.5 mg/dL (0.0-0.9)
[2020-01-06 20:17] LABS: ERYTHROCYTE SEDIMENTATION RATE 6 mm/hr (0-30)
[2020-01-06] MEDS ORDERED: NORFLEX 10100 MG/TAB PO (20:17)
[2020-01-06 20:45] VITALS: BP 142/80; PULSE 78; TEMP 97
== END 2020-01-06 20:45 | disposition home or self-care (01) ==
LOC: COL.ER 18:44
PROVIDERS: Emergency Medicine
DX: G43.909 Migraine, unspecified, not intractable, without status migrainosus (principal); E11.9 Type 2 diabetes mellitus without complications; I10 Essential (primary) hypertension; F17.210 Nicotine dependence, cigarettes, uncomplicated; Z79.4 Long term (current) use of insulin; Z79.82 Long term (current) use of aspirin; Z79.52 Long term (current) use of systemic steroids
CPT/HCPCS: J1170; J2360; J2405; J7030

== ENCOUNTER 2020-01-14 16:56 | Emergency (ER) | payer MEDICAID ==
[~2020-01-14 16:56] MED LIST changes: +NORFLEX 10100 MG/TAB PO
[2020-01-14 17:04] VITALS: BP 116/80; TEMP 98
[2020-01-14] MEDS ORDERED: DOXYCYCLINE HY100 MG PO ×2 (17:41)
[2020-01-14 18:23] VITALS: PULSE 71
== END 2020-01-14 18:22 | disposition home or self-care (01) ==
LOC: COL.ER 16:56
DX: J01.90 Acute sinusitis, unspecified (principal); I25.10 Atherosclerotic heart disease of native coronary artery without angina pectoris; I25.2 Old myocardial infarction; E11.9 Type 2 diabetes mellitus without complications; I10 Essential (primary) hypertension; J44.9 Chronic obstructive pulmonary disease, unspecified; E78.5 Hyperlipidemia, unspecified; G47.33 Obstructive sleep apnea (adult) (pediatric); M79.7 Fibromyalgia; G89.29 Other chronic pain; M54.2 Cervicalgia; K22.70 Barrett's esophagus without dysplasia; L40.50 Arthropathic psoriasis, unspecified; Z90.49 Acquired absence of other specified parts of digestive tract; Z98.890 Other specified postprocedural states; Z86.73 Personal history of transient ischemic attack (TIA), and cerebral infarction without residual deficits; Z79.84 Long term (current) use of oral hypoglycemic drugs; Z79.899 Other long term (current) drug therapy; F17.290 Nicotine dependence, other tobacco product, uncomplicated

== ENCOUNTER 2020-01-19 20:48 | Emergency (ER) | payer MEDICAID ==
[~2020-01-19] VITALS: Ht 182.9 cm; Wt 90.9 kg
[~2020-01-19 20:48] MED LIST changes: +DOXYCYCLINE HY100 MG PO
[2020-01-19 22:02] VITALS: BP 144/78; PULSE 76; TEMP 97.6
== END 2020-01-19 22:02 | disposition home or self-care (01) ==
LOC: COL.ER 20:48
DX: M54.9 Dorsalgia, unspecified (principal); G89.29 Other chronic pain; Z79.4 Long term (current) use of insulin; Z79.82 Long term (current) use of aspirin
CPT/HCPCS: J1170; J2360

== ENCOUNTER 2020-02-15 21:49 | Emergency (ER) | payer MEDICAID ==
[~2020-02-15] VITALS: Ht 182.9 cm; Wt 96.8 kg
[2020-02-15 23:04] VITALS: BP 137/85; TEMP 98
[2020-02-16 00:27] VITALS: PULSE 88
== END 2020-02-16 00:27 | disposition home or self-care (01) ==
LOC: COL.ER 21:49
DX: G89.29 Other chronic pain (principal); M54.2 Cervicalgia; E11.9 Type 2 diabetes mellitus without complications; J44.9 Chronic obstructive pulmonary disease, unspecified; F17.290 Nicotine dependence, other tobacco product, uncomplicated; Z79.52 Long term (current) use of systemic steroids; Z79.82 Long term (current) use of aspirin; Z79.4 Long term (current) use of insulin; Z88.0 Allergy status to penicillin; Z88.2 Allergy status to sulfonamides; Z88.1 Allergy status to other antibiotic agents; Z86.73 Personal history of transient ischemic attack (TIA), and cerebral infarction without residual deficits; X50.0XXA Overexertion from strenuous movement or load, initial encounter
CPT/HCPCS: J2360; J2405; J3010

== ENCOUNTER → 2020-09-19 | Outpatient (CLI) | payer MEDICAID | LOC: MC.RAD | DX: N62 Hypertrophy of breast (principal) ==

== ENCOUNTER 2020-10-20 12:33 | Emergency (ER) | payer MEDICAID ==
[~2020-10-20] VITALS: Ht 182.9 cm; Wt 87.7 kg
[2020-10-20 12:40] VITALS: BP 136/93; TEMP 97
[2020-10-20] MEDS ORDERED: NORFLEX 10100 MG/TAB PO (13:45)
[2020-10-20 14:27] VITALS: PULSE 107
== END 2020-10-20 14:28 | disposition home or self-care (01) ==
LOC: COL.ER 12:33
DX: G89.29 Other chronic pain (principal); M54.2 Cervicalgia; D35.2 Benign neoplasm of pituitary gland; I69.392 Facial weakness following cerebral infarction; I10 Essential (primary) hypertension; E11.9 Type 2 diabetes mellitus without complications; E78.5 Hyperlipidemia, unspecified; J44.9 Chronic obstructive pulmonary disease, unspecified; F43.10 Post-traumatic stress disorder, unspecified; F32.9 Major depressive disorder, single episode, unspecified; K21.9 Gastro-esophageal reflux disease without esophagitis; F17.290 Nicotine dependence, other tobacco product, uncomplicated; Z88.1 Allergy status to other antibiotic agents; Z88.2 Allergy status to sulfonamides; Z88.0 Allergy status to penicillin; Z88.5 Allergy status to narcotic agent; Z79.82 Long term (current) use of aspirin; Z79.4 Long term (current) use of insulin; Z79.899 Other long term (current) drug therapy
CPT/HCPCS: J2360; J3010

== ENCOUNTER → 2020-10-20 | Outpatient (CLI) | payer MEDICAID | LOC: COL.RAD 10:58 | DX: D49.7 Neoplasm of unspecified behavior of endocrine glands and other parts of nervous system (principal) | CPT/HCPCS: A9585 ==